=== PATIENT | male | born 1985 | race Hispanic/Latino ===

== ENCOUNTER 2019-04-12 11:02 | Emergency (ER) | payer SELFPAY ==
[2019-04-12 11:42] LABS: BASO # 0.1 10^3/uL (0.0-0.2); BASO % 0.6 % (0.0-1.0); EOS # 0.2 10^3/uL (0.0-0.5); EOS % 2.7 % (0.0-3.0); HEMATOCRIT 44.9 % (42.0-52.0); HEMOGLOBIN 15.4 g/dl (13.5-17.5); LYMPH # 3.6 10^3/uL (1.5-5.0); MEAN CORPUSCULAR HEMOGLOBIN 30.1 pg (27.0-33.0); MEAN CORPUSCULAR HGB CONC 34.3 g/dl (32.0-36.5); MEAN CORPUSCULAR VOLUME 87.9 fl (80.0-96.0); MONO # 1.2 10^3/uL (0.0-0.8); MONO % 13.7 % (0.0-5.0); NEUTROPHILS # 3.6 10^3/uL (1.5-8.5); NEUTROPHILS % 40.9 % (36.0-66.0); PLATELET COUNT, AUTOMATED 294 10^3/uL (150-450); RED BLOOD COUNT 5.11 10^6/uL (4.30-6.10); WHITE BLOOD COUNT 8.7 10^3/uL (4.0-10.0)
[2019-04-12 12:15] LABS: BLOOD UREA NITROGEN 28 MG/DL (7-18); CALCIUM LEVEL 8.8 MG/DL (8.5-10.1); CARBON DIOXIDE LEVEL 28 MEQ/L (21-32); CHLORIDE LEVEL 109 MEQ/L (98-107); CK-MB VALUE MASS 3.9 NG/ML (<3.6); CPK CREATINE PHOSPHOKINASE 249 U/L (39-308); CREATININE FOR GFR 1.01 MG/DL (0.70-1.30); GLOMERULAR FILTRATION RATE > 60.0 (>60); GLUCOSE, FASTING 101 MG/DL (70-100); MB/CK RELATIVE INDEX 1.57 (< OR =4); POTASSIUM SERUM 3.3 MEQ/L (3.5-5.1); SODIUM LEVEL 142 MEQ/L (136-145); TROPONIN I < 0.02 NG/ML (< 0.10)
[2019-04-12 12:56] LABS: LIPASE 103 U/L (73-393)
[2019-04-12 13:00] VITALS: BP 132/61
--- NOTE | 2019-04-12 13:39 | REP ---
Left ribs for views: There is no rib fracture or other rib abnormality. PA chest: There are no comparisons. There is no pneumothorax, hemothorax or pulmonary contusion. No pleural thickening. Lung woodall are clear. Cardiac size is upper normal. The usha and mediastinum are unremarkable. There is thoracic scoliosis convex left in the upper thoracic spine. Impression: Thoracic scoliosis. Otherwise, negative PA chest. Electronically Signed by Geraldo Anand MD 04/12/2019 01:31 P
--- NOTE | 2019-04-13 07:56 | ECGEPIP ---
[facility] - ED Test Date: 2019-04-12 Pat Name: ELBA ELLISON Department: Room: - Gender: Male Toter: denisse : 1985 Requested By: Vinay Valente Order Number: [id number] Reading MD: Vinay Coles Measurements Intervals [place] Rate: 59 P: 50 AR: 143 QRS: -15 QRSD: 96 T: -13 QT: 394 QTc: 392 Interpretive Statements SINUS BRADYCARDIA LEFT ATRIAL ENLARGEMENT INCOMPLETE RIGHT BUNDLE BRANCH BLOCK POSSIBLE LEFT VENTRICULAR HYPERTROPHY NONSPECIFIC ST & T-WAVE ABNORMALITY NO PRIORS FOR COMPARISON Electronically Signed on 04-13-2019 7:56:08 EST by Vinay Coles
== END 2019-04-12 14:10 | disposition home or self-care (01) ==
LOC: M ED 11:02
DX: R07.89 Other chest pain (principal)